=== PATIENT | male | born 2000 | race Caucasian/White ===

== ENCOUNTER 2019-09-23 19:21 | Emergency (ER) | payer OTHER ==
[~2019-09-23] VITALS: Ht 175.3 cm; Wt 106.0 kg
[~2019-09-23 19:21] MED LIST: None at this time
[2019-09-23] MEDS ORDERED: ONDANSETRON 2MG/ML, 2ML ONE (20:00)
[2019-09-23] MEDS ORDERED: ONDANSETRON 2MG/ML, 2ML IVPush ONE (20:00)
[2019-09-23] MEDS ORDERED: MORPHINE SULFATE 4 MG/ML, 1ML ONE ×2 (20:00→20:35)
[2019-09-23] MEDS ORDERED: SODIUM CHLORIDE 0.9% 1,000ML IVBOLUS ONE ×2 (20:00→21:30)
[2019-09-23] MEDS ORDERED: SODIUM CHLORIDE FLUSH 10ML SYR IVF ONE (20:00)
[2019-09-23] MEDS: MORPHINE SULFATE 4 MG/ML, 1ML IVPush PRN ×2 (20:05→20:40)
[2019-09-23 20:07] LABS: MEAN CORPUSCULAR HEMOGLOBIN 31.2 pg (27.5-34.5); MEAN CORPUSCULAR HGB CONC 34.2 g/dL (33.2-36.2); MEAN CORPUSCULAR VOLUME 91.3 fL (81-97); MEAN PLATELET VOLUME 8.1 fL (7.4-10.4); PLATELET COUNT 248 x10^3/uL (130-400); RED BLOOD COUNT 5.43 x10^6/uL (4.38-5.82); RED CELL DISTRIBUTION WIDTH 12.5 % (9.4-14.8)
[2019-09-23 20:19] LABS: ALANINE AMINOTRANSFERASE 32 U/L (12-78); ALBUMIN 4.2 g/dL (3.4-5.0); ANION GAP 6 mmol/L (5-15); CALCIUM 9.1 mg/dL (8.5-10.1); CHLORIDE 106 mmol/L (98-107); CREATININE 1.21 mg/dL (0.7-1.3)
[2019-09-23 20:21] LABS: ALKALINE PHOSPHATASE 77 U/L (45-117); BILIRUBIN,TOTAL 0.8 mg/dL (0.2-1.0); TOTAL PROTEIN 8.1 g/dL (6.4-8.2)
--- NOTE | 2019-09-23 20:41 | NUR ---
Pt reporting no change in pain after 1st dose of Morphine and is requesting a second dose. Second dose given per orders.
[2019-09-23 20:56] LABS: BASOPHILS # (AUTO) 0.02 x10^3/uL (0-0.1); BASOPHILS % (AUTO) 0 % (0-1); EOSINOPHILS # (AUTO) 0.15 x10^3/uL (0-0.4); EOSINOPHILS % (AUTO) 1 % (1-7); LYMPHOCYTES # (AUTO) 1.07 x10^3/uL (1-3.4); LYMPHOCYTES % (AUTO) 7 % (22-44); MD SCAN; MONOCYTES # (AUTO) 0.94 x10^3/uL (0.2-0.8); MONOCYTES % (AUTO) 7 % (2-9); NEUTROPHILS # (AUTO) 12.33 x10^3/uL (1.8-6.8); NEUTROPHILS % (AUTO) 85 % (42-75)
--- NOTE | 2019-09-23 21:03 | NUR ---
Pt returned from CT. Pt reports vomiting at CT after the contrast was injected.
[2019-09-23] MEDS ORDERED: IBUPROFEN 600 MG TABLET ONE (21:26)
[2019-09-23] MEDS ORDERED: IBUPROFEN 600 MG TABLET PO ONE (21:30)
[2019-09-23 23:04] VITALS: BP 100/51
[2019-09-23] MEDS ORDERED: OMNIPAQUE 350 MG/ML, 100ML BOTTLE ONE (23:23)
== END 2019-09-23 23:09 | disposition home or self-care (01) ==
LOC: ED 20:38
DX: R10.84 Generalized abdominal pain (principal); R11.2 Nausea with vomiting, unspecified; R94.31 Abnormal electrocardiogram [ECG] [EKG]
CPT/HCPCS: 36415; 71045; 74177; 80053; 83605; 83690; 85025; 87040; 93005; 96361; 96374; 96375; 96376; 99285; J2270; J2405; J7030; Q9967